=== PATIENT | female | born 1950 | race Caucasian/White ===

== ENCOUNTER 2016-09-23 08:22 | Emergency (ER) | payer MEDICAID, OTHER ==
[~2016-09-23] VITALS: Wt 63.5 kg
[~2016-09-23 08:22] MED LIST: GEMF600T60 PO; LEVO125T75 PO; THYROID MEDS
[2016-09-23] MEDS ORDERED: ACETAMINOPHEN 500 MG TAB PO STA (09:09)
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
[2016-09-23] MEDS ORDERED: ACET500C5 PO (09:19)
[2016-09-23] MEDS ORDERED: ALBU18HF INHALATION (09:20)
[2016-09-23] MEDS ORDERED: AZIT250T94 PO (09:20)
[2016-09-23] MEDS ORDERED: BENZ100C70 PO (09:20)
== END 2016-09-23 10:03 | disposition home or self-care (01) ==
LOC: FTE 08:22
DX: J03.90 Acute tonsillitis, unspecified (principal); R05 Cough; J06.9 Acute upper respiratory infection, unspecified; I10 Essential (primary) hypertension; E03.9 Hypothyroidism, unspecified
CPT/HCPCS: 99284